=== PATIENT | male | born 1945 | race Caucasian/White ===

== ENCOUNTER → 2019-06-14 | Outpatient (CLI) | payer MEDICARE ==
--- NOTE | 2019-06-14 14:14 | MR ---
EXAMINATION TYPE: MR knee RT wo con DATE OF EXAM: 06/14/2019 COMPARISON: Plain film 05/02/2019 HISTORY: Right knee pain TECHNIQUE: Multiplanar, multisequence imaging of the right knee is performed without IV contrast. FINDINGS: MEDIAL MENISCUS: Posterior horn of the medial meniscus is small and irregular, there is abnormal at 8 and 6 signal present in the body and coronal image 18 shows a truncated appearance LATERAL MENISCUS: Meniscus shows in the posterior horn abnormal increased signal is extensive articul ar surface. T2 intense focus along the anterior horn may represent a meniscal cyst coronal image 12 m easuring 9 mm CRUCIATE LIGAMENTS: The anterior and posterior cruciate ligaments are intact and unremarkable. COLLATERAL LIGAMENTS: The medial collateral ligament and lateral collateral ligament complex are inta ct and unremarkable. EXTENSOR MECHANISM: Visualized quadriceps and patellar tendons are intact. EFFUSION: Prepatellar joint effusion is present. POPLITEAL CYST: T1 intermediate, T2 intense focus measures 2.6 x 1 1.8 x 4.5 cm and shows some inter nal septations, mild heterogeneity of signal. TRICOMPARTMENT SPACES: Joint space loss greater in the lateral compartment than the medial compartmen t CARTILAGE: Grade 3 to grade IV chondromalacia in the lateral compartment, grade III chondromalacia in the medial compartment, grade II chondromalacia posterior patella BONE MARROW SIGNAL: Reactive marrow signal change present in the subchondral location compartment OTHER: Subcutaneous edema is present anteriorly. IMPRESSION: Osteoarthritis. Tears of the menisci as described. Semimembranosus gastrocnemius cyst. Additional fin dings above.
== END | disposition home or self-care (01) ==
LOC: RADMRIMAIN 09:20
PROVIDERS: ATTEND Orthopaedic Surgery
DX: S83.241A Other tear of medial meniscus, current injury, right knee, initial encounter (principal); S83.281A Other tear of lateral meniscus, current injury, right knee, initial encounter; M17.11 Unilateral primary osteoarthritis, right knee; M22.41 Chondromalacia patellae, right knee

== ENCOUNTER 2019-07-15 08:09 | Day surgery (SDC) | payer MEDICARE ==
[2019-07-12 13:26] VITALS: BMI 36.4
--- NOTE | 2019-07-14 09:50 | HP ---
HISTORY AND PHYSICAL CHIEF COMPLAINT: Right knee pain. HISTORY OF PRESENT ILLNESS: The patient is a 74-year-old retired gentleman who presents with progressive right knee pain for the past several months. He notes posterior and lateral pain and giving way. He has tried medications and an injection with only partial temporary relief. He does use a walker. PAST MEDICAL HISTORY: Significant for arthritis, reflux disease, hypertension, and Parkinson's. PAST SURGICAL HISTORY: Significant for left total knee arthroplasty, previous shoulder surgery and appendectomy. CURRENT MEDICATIONS: 1. Lisinopril. 2. Doxazosin. 3. Lasix. 4. Gabapentin. 5. Mobic. 6. Sinemet. 7. Tylenol. ALLERGIES: He denies drug allergies. FAMILY HISTORY: Significant for cancer and Parkinson's. SOCIAL HISTORY: Significant for previous tobacco use. REVIEW OF SYSTEMS: Sixteen-point review of systems otherwise reviewed and is noncontributory. PHYSICAL EXAMINATION: On examination, the patient is approximately 5 feet 5 inches, 219 pounds of endomorphic habitus. HEENT exam is nonfocal. Neck is supple. He has painless passive motion of the right hip. Straight leg raise is negative. Active motion right knee -8 to 120 degrees of flexion. He has a trace effusion. He is tender about the lateral joint line. Collaterals are stable, Eliseo is negative, Yeison's elicits lateral pain. He has genu valgum alignment. His distal neurovascular exam appears intact in the right lower extremity. MRI report 06/14/2019 of the right knee shows a posterior medial and lateral meniscal tear. Lateral compartment degenerative changes are noted. IMPRESSION: 1. Right knee internal derangement with symptomatic medial and lateral meniscal tears. 2. Right knee moderate lateral compartment osteoarthrosis. 3. Parkinson's. RECOMMENDATIONS: I talked to the patient at length regarding his condition along with treatment options. At this point, he is quite symptomatic, having pain and mechanical symptoms despite conservative measures. After thorough discussion, he opts to proceed with surgery. We will plan to proceed with arthroscopic evaluation with possible partial medial and lateral meniscectomy. We will likely perform that as an outpatient procedure. Risks and benefits were discussed at length in layman's terms. The patient underwent preoperative medical evaluation by Dr. Christiano Hand. MMMARLA / LESLIE: [id number] /
[~2019-07-15 08:09] MED LIST: DEXAMETHASONE SOD PHOSPHATE 10 MG/ML 1 ML VIAL IV ONE; HYDROmorphone 0.5 MG/0.5 ML SYRINGE IVP PRN; ONDANSETRON 4 MG/2 ML VIAL IVP ONE
[2019-07-15 08:47] LABS: Basophils # (A) 0.1 k/uL (0-0.2); Basophils % (A) 1 %; Eosinophils # (A) 0.3 k/uL (0-0.7); Eosinophils % (A) 4 %; HGB 11.3 gm/dL (13.0-17.5); Lymphocytes # (A) 1.3 k/uL (1.0-4.8); Lymphocytes % (A) 18 %; MCH 27.1 pg (25.0-35.0); MCHC 32.4 g/dL (31.0-37.0); MCV 83.5 fL (80.0-100.0); Mean Platelet Volume 8.3; Monocytes # (A) 0.6 k/uL (0-1.0); Monocytes % (A) 8 %; Neutrophils # (A) 4.5 k/uL (1.3-7.7); Neutrophils % (A) 66 %; Platelet Count 278 k/uL (150-450); RBC 4.19 m/uL (4.30-5.90); RDW 14.9 % (11.5-15.5); WBC 6.9 k/uL (3.8-10.6)
[2019-07-15] MEDS: LACTATED RINGERS 1,000 ML IV SCH (08:55)
[2019-07-15] MEDS ORDERED: LIDOCAINE 1% 20 ML VIAL (10MG/ML) FOR IV START INTRADERMA ONE (08:56)
[2019-07-15 09:02] LABS: Calcium 9.2 mg/dL (8.4-10.2); Potassium 3.3 mmol/L (3.5-5.1)
[2019-07-15] MEDS ORDERED: MIDAZOLAM 2 MG/2 ML VIAL ONE (10:30)
[2019-07-15] MEDS ORDERED: SUCCINYLCHOLINE CHLORIDE 100 MG/5 ML SYR IV ONE (10:30)
[2019-07-15] MEDS ORDERED: fentaNYL (PF) 50 MCG/ML 2 ML AMP ONE (10:30)
[2019-07-15] MEDS ORDERED: LIDOCAINE 1% INJ 10MG/ML (20 ML MDV) ONE (10:30)
[2019-07-15] MEDS ORDERED: PROPOFOL 10 MG/ML 20 ML VIAL IV ONE (10:30)
[2019-07-15] MEDS ORDERED: LACTATED RINGERS 1,000 ML IV ONE (11:03)
--- NOTE | 2019-07-15 11:22 | P.OP ---
Date of Procedure: 07/15/19 Preoperative Diagnosis: Right knee internal derangement Postoperative Diagnosis: Right knee posterior medial meniscal tear/posterior lateral meniscal tear/grade 3 chondral injury posterior medial femoral condyle Procedure(s) Performed: Right knee arthroscopic partial medial meniscectomy/partial lateral meniscectomy/medial femoral chondrectomy/microfracture medial femoral condyle Anesthesia: SHAW Surgeon: Josh Richmond Estimated Blood Loss (ml): 10 Pathology: none sent Condition: stable Disposition: PACU Indications for Procedure: The patient's a 74-year-old male who presents with progressive right knee pain and mechanical symptoms despite conservative measures. A discussion the risks and benefits of operative intervention versus continued conservative measures was made with the patient. He opted to proceed with surgery. Operative risks to include infection, neurovascular injury, development of blood clots, possible incomplete resolution of symptoms, possible worsening symptoms and need for subsequent procedures was discussed. Informed consent was obtained. Operative Findings: As below Description of Procedure: The patient was brought to the operating room, and after induction of general anesthesia examined the right knee. Collaterals were stable, Eliseo was negative, and posterior drawer was negative. The right lower extremity was prepped and draped in a normal fashion. A superior lateral portal was made through a 3 mm skin incision superior and lateral to the patella. This was used for outflow. A lateral portal was made through a 5 mm vertical skin incision lateral to the patella tendon above the joint line. Diagnostic arthroscopy was performed. On inspection of the medial compartment, a complex tear involving the posterior horn of the medial meniscus in the white-white junction was noted. This was debrided back to stable base with straight baskets and a motorized shaver. A corresponding grade 3 chondral injury was noted involving the central posterior portion of the medial femoral condyle. There was a loose chondral fragment debrided back to stable base with a motorized shaver. Microfracture was performed with a chondral breeching the subchondral surface down to the bone marrow elements. On inspection of the notch, the anterior cruciate ligament appeared to be intact. On inspection of the lateral compartment, complex tear involving the middle to posterior one third of the lateral meniscus was noted. This was debrided back to stable base with straight baskets and a motorized shaver. Grade 3/4 chondral changes were noted involving the posterior aspect of the lateral femoral condyle On inspection of the patellofemoral articulation, there was grade 2 chondral changes diffusely. The gutters were clear debris. The knee was then thoroughly irrigated. The portals were closed with Steri- Strips. A sterile dressing was applied in addition to a compression stocking. The patient was awoken from general anesthesia and transferred to recovery room in good condition. Blood loss was estimated at 10 mL. No complications were incurred.
[2019-07-15] MEDS ORDERED: HYDROcodone/APAP 5-325MG 1 EACH TAB PO ONE (12:16)
[2019-07-15] MEDS ORDERED: NALOXONE 0.4 MG/ML 1 ML VIAL IV PRN (16:41)
[2019-07-15] MEDS ORDERED: MORPHINE SULFATE 2 MG/ML SYRINGE IV PRN (16:41)
[2019-07-15] MEDS ORDERED: Potassium Replacement Protocol 1 EACH MISC MISCELLANE PRN (16:59)
--- NOTE | 2019-07-15 17:05 | P.HPIM ---
History of Present Illness H&P Date: 07/15/19 Chief Complaint: Right knee pain 74 show male with PMH of Parkinson's disorder, hypertension, GERD, arthritis presents to [facility] for elective surgery. He has had progressive right knee pain over the past several months after suffering a fall in the bathroom a couple of months ago. MRI that was done on 06/14/2019 of the right knee showed a posterior medial and lateral meniscal tear. Patient underwent right knee arthroscopic partial medial meniscectomy, partial lateral meniscectomy, medial femoral chondrectomy and microfracture of the medial femor al condyle. After the surgery, patient was unable to get up and ambulate with the help of assistance thus admitted for further workup and treatment. Patient had no immediate postoperative complications. Patient was seen and examined. Patient reports a mild aching in his right knee at this time 5-6 out of 10 in severity. Patient denies any headache, lower extremity edema, nausea or vomiting, fever or chills, cough, chest pain, shortness of breath, palpitations, changes in urination or bowel habits. No changes in appetite or weight. Patient states that he lives with his and she takes care of him "the best that she can". Apparently, patient was too drowsy and had difficulty moving his right and left lower extremity. Is unable to get up safely and only has his for help at home. His vital signs are currently stable. He is saturating low 90s on 2 L nasal cannula. Review of Systems Pertinent positives and negatives as discussed in HPI, a complete review of systems was performed and all other systems are negative. Past Medical History Past Medical History: Heart Failure, COPD, GERD/Reflux, Hypertension, Neurologic Disorder, Prostate Disorder Additional Past Medical History / Comment(s): PARKINSON'S DISEASE, BACK PAIN, PUD, rectal bleed with colonoscopy-thought to be from hemorrhoids, benign thyroid nodules, gall bladder sludge, hx brain bleed History of Any Multi-Drug Resistant Organisms: None Reported Past Surgical History: Appendectomy, Joint Replacement, Orthopedic Surgery Additional Past Surgical History / Comment(s): 10/09/15 total L knee arthroplasty. Other SX: NEUROMA -RIGHT WRIST , LEFT SHOULDER rotator cuff repair, colonoscopy with polypectomy-benign Past Anesthesia/Blood Transfusion Reactions: No Reported Reaction Additional Past Anesthesia/Blood Transfusion Reaction / Comment(s): Pt has never received blood. Smoking Status: Former smoker - Past Family History Brother(s) Family Medical History: Cancer Father History Unknown: Yes Additional Family Medical History / Comment(s): Father at age 97yrs.complications from smoking Mother Additional Family Medical History / Comment(s): Mother at age 84yrs. She had a problem with pain medication after a accident. Medications and Allergies Home Medications Medication Instructions Recorded Confirmed Type Carbidopa-Levodopa 25-100 mg 1 tab PO TID 09/25/15 07/15/19 History [Sinemet 25-100 mg] Doxazosin Mesylate 8 mg PO HS 09/25/15 07/15/19 History Gabapentin [Neurontin] 300 mg PO HS 09/25/15 07/15/19 History Acetaminophen [Tylenol Arthritis] 2 - 4 tab PO DAILY 07/12/19 07/15/19 History Albuterol Inhaler [Ventolin Hfa 2 puff INHALATION DAILY PRN 07/12/19 07/15/19 History Inhaler] DULoxetine HCL [Cymbalta] 20 mg PO BID 07/12/19 07/15/19 History Entacapone [Comtan] 200 mg PO DAILY 07/12/19 07/15/19 History Furosemide [Lasix] 40 mg PO DAILY 07/12/19 07/15/19 History Meloxicam 15 mg PO HS 07/12/19 07/15/19 History Metolazone [Zaroxolyn] 2.5 mg PO Q48H 07/12/19 07/15/19 History Omeprazole 20 mg PO DAILY 07/12/19 07/15/19 History HYDROcodone/APAP 5-325MG [[place] 1 tab PO Q6HR PRN 7 Days #21 tab 07/15/19 Rx 5-325] Allergies Allergy/AdvReac Type Severity Reaction Status Date / Time No Known Allergies Allergy Verified 07/15/19 08:50 Physical Exam Vitals: Vital Signs Temp Pulse Resp BP BP Pulse Ox 07/15/19 16:30 98.2 F 87 15 130/85 91 L 07/15/19 16:27 94 L 07/15/19 15:41 86 20 123/80 96 07/15/19 15:05 87 20 134/82 97 07/15/19 14:21 84 20 125/84 94 L 07/15/19 13:30 84 20 114/73 96 07/15/19 13:04 86 20 106/69 97 07/15/19 12:30 88 20 108/70 93 L 07/15/19 12:15 76 18 132/87 94 L 07/15/19 12:13 81 18 124/80 90 L 07/15/19 11:54 74 18 137/89 91 L 07/15/19 11:47 73 16 129/79 92 L 07/15/19 11:30 72 16 133/81 93 L 07/15/19 11:18 97.1 F L 79 16 107/73 100 07/15/19 08:53 97.4 F L 89 18 121/79 92 L Intake and Output 07/15/19 07/15/19 07/15/19 06:59 14:59 22:59 Intake Total 1900 Output Total 355 Balance 1545 Intake: IV 1900 Output: Urine 350 Estimated Blood Loss 5 Other: Weight 100.244 kg General: [non toxic], [no distress], [appears at stated age] Derm: [warm], [dry] Head: [atraumatic], [normocephalic], [symmetric] Eyes: [EOMI], [no lid lag], [anicteric sclera] Mouth: [no lip lesion], [mucus membranes moist] Cardiovascular: [S1S2 reg], [no murmur], [positive DP pulse bilateral] Lungs: [Decreased breath sounds bilateral], [no rhonchi, no rales] , [no accessory muscle use] Abdominal: [soft], [ nontender to palpation], [no guarding], [no appreciable organomegaly] Ext: [no gross muscle atrophy], [no edema], [right knee wrapped dressing clean dry and intact with limited range of motion], [fine tremors of the fingers] Neuro: [ CN II-XI grossly intact], [no focal neuro deficits] Psych: [Alert], [oriented], [appropriate affect] Results CBC & Chem 7: 07/15/19 08:40 07/15/19 08:40 Labs: Abnormal Lab Results - Last 24 Hours (Table) 07/15/19 07/15/19 Range/Units 08:40 08:40 RBC 4.19 L (4.30-5.90) m/uL Hgb 11.3 L (13.0-17.5) gm/dL Hct 35.0 L (39.0-53.0) % Potassium 3.3 L (3.5-5.1) mmol/L Carbon Dioxide 33 H (22-30) mmol/L BUN 30 H (9-20) mg/dL Creatinine 1.37 H (0.66-1.25) mg/dL Thrombosis Risk Factor Assmnt - Choose All That Apply Each Factor Represents 1 point: Abnormal pulmonary function (COPD), Minor surgery planned, Obesity (BMI >25) Each Risk Factor Represents 2 Points: Arthroscopic surgery Each Risk Factor Represents 3 Points: Age 75 years or older Thrombosis Risk Factor Assessment Total Risk Factor Score: 8 Thrombosis Risk Factor Assessment Level: High Risk Assessment and Plan Assessment: Unstable gait likely secondary to recent right knee surgery and history of Parkinson's Parkinson's disorder Anemia Hypokalemia Acute kidney injury BPH Patient reports a vague 5-6 out of 10 severity pain in his right knee post surgery. Per RN reports, patient was drowsy and unable to ambulate postoperatively. This could be related to anesthesia. Plans: Fall precautions. Will follow PT and OT recommendations tomorrow. Plans: Continue carbidopa levodopa. Continue entacapone. Fall precautions. Hemoglobin 11.3. Unknown baseline. Likely acute blood loss from surgery. Plans: Daily CBC. Transfuse if hemoglobin less than 7. Potassium 3.3. Plans: Replace via protocol. BUN 30, creatinine 1.37. Likely due to dehydration. Unknown if patient has CKD. Plans: Start lactated Ringer's at 80 mL per hour. Daily BMP. Consider renal ultrasound and urine electrolytes if not improved tomorrow. Plans: Start Doxazosin. DVT prophylaxis: [SCD boots] Discussed with: [Patient] Anticipated discharge: [1-2 days] Anticipated discharge place: [Home] A total of [45] minutes was spent on the care of this complex patient more than 50% of the time was spent in counseling and care coordination. Patient names his Rosa Maria decision maker in the case that he can make decisions for himself. Patient reiterates wanting to remain full code at this time.
--- NOTE | 2019-07-15 17:30 | P.CNOR ---
History of Present Illness - [facility] Consult date: 07/15/19 Consult reason: other (Weakness) History of present illness: The patient's a 74-year-old male who underwent right knee arthroscopy today and after surgery, had a hard time ambulating. Past Medical History Past Medical History: Heart Failure, COPD, GERD/Reflux, Hypertension, Neurologic Disorder, Prostate Disorder Additional Past Medical History / Comment(s): PARKINSON'S DISEASE, BACK PAIN, PUD, rectal bleed with colonoscopy-thought to be from hemorrhoids, benign thyroid nodules, gall bladder sludge, hx brain bleed History of Any Multi-Drug Resistant Organisms: None Reported Past Surgical History: Appendectomy, Joint Replacement, Orthopedic Surgery Additional Past Surgical History / Comment(s): 10/09/15 total L knee arthroplasty. Other SX: NEUROMA -RIGHT WRIST , LEFT SHOULDER rotator cuff repair, colonoscopy with polypectomy-benign Past Anesthesia/Blood Transfusion Reactions: No Reported Reaction Additional Past Anesthesia/Blood Transfusion Reaction / Comm: Pt has never received blood. Smoking Status: Former smoker - Past Family History Brother(s) Family Medical History: Cancer Father History Unknown: Yes Additional Family Medical History / Comment(s): Father at age 97yrs.complications from smoking Mother Additional Family Medical History / Comment(s): Mother at age 84yrs. She had a problem with pain medication after a accident. Medications and Allergies Home Medications Medication Instructions Recorded Confirmed Type Carbidopa-Levodopa 25-100 mg 1 tab PO TID 09/25/15 07/15/19 History [Sinemet 25-100 mg] Doxazosin Mesylate 8 mg PO HS 09/25/15 07/15/19 History Gabapentin [Neurontin] 300 mg PO HS 09/25/15 07/15/19 History Acetaminophen [Tylenol Arthritis] 2 - 4 tab PO DAILY 07/12/19 07/15/19 History Albuterol Inhaler [Ventolin Hfa 2 puff INHALATION DAILY PRN 07/12/19 07/15/19 History Inhaler] DULoxetine HCL [Cymbalta] 20 mg PO BID 07/12/19 07/15/19 History Entacapone [Comtan] 200 mg PO DAILY 07/12/19 07/15/19 History Furosemide [Lasix] 40 mg PO DAILY 07/12/19 07/15/19 History Meloxicam 15 mg PO HS 07/12/19 07/15/19 History Metolazone [Zaroxolyn] 2.5 mg PO Q48H 07/12/19 07/15/19 History Omeprazole 20 mg PO DAILY 07/12/19 07/15/19 History HYDROcodone/APAP 5-325MG [[place] 1 tab PO Q6HR PRN 7 Days #21 tab 07/15/19 Rx 5-325] Allergies Allergy/AdvReac Type Severity Reaction Status Date / Time No Known Allergies Allergy Verified 07/15/19 08:50 Physical Examination - Knee right Appearance: effusion (Mild) Previous incision location: Portal sites clean and dry Tenderness with palpation: none Gait: other (Wide-based and unsteady) ROM: extension: -10 degrees ROM: flexion: 110 degrees Results - Labs Labs: Abnormal Lab Results - Last 24 Hours (Table) 07/15/19 07/15/19 Range/Units 08:40 08:40 RBC 4.19 L (4.30-5.90) m/uL Hgb 11.3 L (13.0-17.5) gm/dL Hct 35.0 L (39.0-53.0) % Potassium 3.3 L (3.5-5.1) mmol/L Carbon Dioxide 33 H (22-30) mmol/L BUN 30 H (9-20) mg/dL Creatinine 1.37 H (0.66-1.25) mg/dL H & H 07/15/19 Range/Units 08:40 Hgb 11.3 L (13.0-17.5) gm/dL Hct 35.0 L (39.0-53.0) % Result Diagrams: 07/15/19 08:40 07/15/19 08:40 Assessment and Plan Assessment: Status post right knee arthroscopy Parkinson's Gait abnormality Plan: At this point he benefit from OT/PT evaluation and treatment. He may require home therapy once discharged. He can weight-bear as tolerated on the right leg with a walker and assistance. Follow-up with Dr. Richmond in 2 weeks. Keep incisions clean and dry. Time with Patient: Less than 30
[2019-07-15] MEDS: GABAPENTIN 300 MG CAP PO SCH (20:14)
[2019-07-15] MEDS: DOXAZOSIN 4 MG TAB PO SCH (20:14)
[2019-07-15] MEDS: DULoxetine HCL 20 MG CAPSULE.DR PO SCH (20:14)
[2019-07-15] MEDS: HYDROcodone/APAP 5-325MG 1 EACH TAB PO PRN (20:14)
[2019-07-15] MEDS: CARBIDOPA-LEVODOPA 25-100 MG 1 EACH TAB PO SCH (21:06)
[2019-07-16 07:47] LABS: Basophils # (A) 0.1 k/uL (0-0.2); Basophils % (A) 1 %; Eosinophils # (A) 0.1 k/uL (0-0.7); Eosinophils % (A) 1 %; HGB 10.1 gm/dL (13.0-17.5); Lymphocytes # (A) 1.1 k/uL (1.0-4.8); Lymphocytes % (A) 15 %; MCH 27.8 pg (25.0-35.0); MCHC 32.6 g/dL (31.0-37.0); MCV 85.3 fL (80.0-100.0); Mean Platelet Volume 8.2; Monocytes # (A) 0.6 k/uL (0-1.0); Monocytes % (A) 8 %; Neutrophils # (A) 5.6 k/uL (1.3-7.7); Neutrophils % (A) 74 %; Platelet Count 259 k/uL (150-450); RBC 3.64 m/uL (4.30-5.90); RDW 14.8 % (11.5-15.5); WBC 7.6 k/uL (3.8-10.6)
[2019-07-16 08:03] LABS: Albumin 3.5 g/dL (3.5-5.0); Calcium 8.7 mg/dL (8.4-10.2); Potassium 3.3 mmol/L (3.5-5.1); Total Bilirubin 0.8 mg/dL (0.2-1.3); Total Protein 6.5 g/dL (6.3-8.2)
[2019-07-16] MEDS: DULoxetine HCL 20 MG CAPSULE.DR PO SCH ×2 (08:53→20:44)
[2019-07-16] MEDS: POTASSIUM CHLORIDE ER 20 MEQ TAB.ER PO SCH ×4 (08:53→20:44)
[2019-07-16] MEDS: PANTOPRAZOLE 40 MG TABLET PO SCH (08:53)
[2019-07-16] MEDS: CARBIDOPA-LEVODOPA 25-100 MG 1 EACH TAB PO SCH ×3 (08:53→20:09)
[2019-07-16] MEDS: LACTATED RINGERS 1,000 ML IV SCH ×2 (08:58→19:21)
[2019-07-16] MEDS: ENTACAPONE 200 MG TAB PO SCH (10:19)
[2019-07-16] MEDS ORDERED: POTASSIUM CHLORIDE ER 20 MEQ TAB.ER PO STA (11:52)
--- NOTE | 2019-07-16 11:54 | P.PN ---
Subjective Progress Note Date: 07/16/19 Principal diagnosis: Unstable gait Patient was seen and examined. No acute events overnight. Patient reports improved pain in his right knee. He denies any chest pain, shortness of breath or palpitations. No nausea or vomiting. No fever or chills. States that he would rather go home instead a rehab, had a bad experience at [facility]. states that she can't take care of him and would rather him go to rehab. Objective - Vital Signs Vital signs: Vital Signs Temp 97.4 F L 07/16/19 07:00 Pulse 86 07/16/19 07:00 Resp 16 07/16/19 08:00 BP 122/73 07/16/19 07:00 Pulse Ox 92 L 07/16/19 07:00 Intake & Output 07/15/19 07/16/19 07/16/19 18:59 06:59 18:59 Intake Total 1900 960 Output Total 355 200 Balance 1545 960 -200 Weight 100.244 kg Intake: IV 1900 Intake, IV Titration 960 Amount Lactated Ringers 1,000 ml 960 @ 80 mls/hr IV .[id number] [facility] Rx#:[id number] Output: Urine 350 200 Estimated Blood Loss 5 Other: Voiding Method Urinal Diaper - Exam General: [non toxic], [no distress], [appears at stated age] Derm: [warm], [dry] Head: [atraumatic], [normocephalic], [symmetric] Eyes: [EOMI], [no lid lag], [anicteric sclera] Mouth: [no lip lesion], [mucus membranes moist] Cardiovascular: [S1S2 reg], [no murmur], [positive DP pulse bilateral] Lungs: [Clear to auscultation bilateral], [no rhonchi, no rales] , [no accessory muscle use] Abdominal: [soft], [ nontender to palpation], [no guarding], [no appreciable organomegaly] Ext: [no gross muscle atrophy], [no edema], [right knee wrapped dressing clean dry and intact with limited range of motion], [fine tremors of the fingers] Neuro: [no focal neuro deficits] Psych: [Alert], [oriented], [appropriate affect] - Labs CBC & Chem 7: 07/16/19 07:28 07/16/19 07:28 Labs: Abnormal Lab Results - Last 24 Hours (Table) 07/16/19 07/16/19 Range/Units 07:28 07:28 RBC 3.64 L (4.30-5.90) m/uL Hgb 10.1 L (13.0-17.5) gm/dL Hct 31.0 L (39.0-53.0) % Potassium 3.3 L (3.5-5.1) mmol/L BUN 23 H (9-20) mg/dL Glucose 102 H (74-99) mg/dL ALT 13 L (21-72) U/L Assessment and Plan Assessment: Unstable gait likely secondary to recent right knee surgery and history of Parkinson's Parkinson's disorder Anemia Hypokalemia Acute kidney injury BPH Plans: Fall precautions. Will wait on PT and OT recommendations. Plans: Continue carbidopa levodopa. Continue entacapone. Fall precautions. Hemoglobin 11.3-10.1. Unknown baseline. Likely acute blood loss from surgery. Plans: Daily CBC. Transfuse if hemoglobin less than 7. Potassium 3.3-3.3. Plans: Replace via protocol. BUN 30-23, creatinine 1.37-within normal limits. Likely due to dehydration. Unknown if patient has CKD. Plans: Continue lactated Ringer's at 80 mL per hour. Daily BMP. Plans: Start Doxazosin. [Will wait on PT evaluation to determine home versus [facility]. Possible DC today.]
[2019-07-16] MEDS: HEPARIN SODIUM,PORCINE 5,000 UNIT/ML 1 ML VIAL SQ SCH ×2 (16:15→22:45)
[2019-07-16] MEDS: ACETAMINOPHEN TAB 325 MG TAB PO PRN ×2 (16:15→22:45)
[2019-07-16] MEDS: GABAPENTIN 300 MG CAP PO SCH (20:09)
[2019-07-16] MEDS: DOXAZOSIN 4 MG TAB PO SCH (20:09)
[2019-07-17] MEDS: MELATONIN 3 MG TABLET PO PRN ×2 (00:36→21:07)
[2019-07-17] MEDS: DULoxetine HCL 20 MG CAPSULE.DR PO SCH ×2 (08:23→20:01)
[2019-07-17] MEDS: HEPARIN SODIUM,PORCINE 5,000 UNIT/ML 1 ML VIAL SQ SCH ×3 (08:23→23:12)
[2019-07-17] MEDS: PANTOPRAZOLE 40 MG TABLET PO SCH (08:23)
[2019-07-17] MEDS: CARBIDOPA-LEVODOPA 25-100 MG 1 EACH TAB PO SCH ×3 (08:23→20:01)
[2019-07-17] MEDS: ENTACAPONE 200 MG TAB PO SCH (08:23)
--- NOTE | 2019-07-17 10:15 | P.PN ---
Subjective Progress Note Date: 07/17/19 Principal diagnosis: Patient was seen and examined. No acute events overnight. Patient reports constipation, would like stool softener. He denies any chest pain, shortness of breath or palpitations. No nausea or vomiting. No fever or chills. Able to work with physical therapy, recommended rehab. He is now agreeable for rehab. Objective - Vital Signs Vital signs: Vital Signs Temp 97.9 F 07/17/19 07:00 Pulse 72 07/17/19 07:00 Resp 14 07/17/19 07:00 BP 133/79 07/17/19 07:00 Pulse Ox 95 07/17/19 07:00 Intake & Output 07/16/19 07/17/19 07/17/19 18:59 06:59 18:59 Intake Total 600 Output Total 200 200 Balance -200 600 -200 Intake: Oral 600 Output: Urine 200 200 Other: Voiding Method Urinal Diaper # Voids 2 3 - Exam General: [non toxic], [no distress], [appears at stated age] Derm: [warm], [dry] Head: [atraumatic], [normocephalic], [symmetric] Eyes: [EOMI], [no lid lag], [anicteric sclera] Mouth: [no lip lesion], [mucus membranes moist] Cardiovascular: [S1S2 reg], [no murmur], [positive DP pulse bilateral] Lungs: [Clear to auscultation bilateral], [no rhonchi, no rales] , [no accessory muscle use] Abdominal: [soft], [ nontender to palpation], [no guarding], [no appreciable organomegaly] Ext: [no gross muscle atrophy], [no edema], [right knee wrapped dressing clean dry and intact with limited range of motion], [fine tremors of the fingers] Neuro: [no focal neuro deficits] Psych: [Alert], [oriented], [appropriate affect] - Labs CBC & Chem 7: 07/16/19 07:28 07/16/19 15:33 Labs: Abnormal Lab Results - Last 24 Hours (Table) 07/16/19 Range/Units 15:33 Potassium 3.4 L (3.5-5.1) mmol/L Assessment and Plan Assessment: Unstable gait likely secondary to recent right knee surgery and history of Parkinson's Constipation Parkinson's disorder Anemia Hypokalemia Acute kidney injury BPH Plans: Fall precautions. PT recommends rehab. Plans: MiraLAX today. Plans: Continue carbidopa levodopa. Continue entacapone. Fall precautions. Hemoglobin 11.3-10.1. Unknown baseline. Likely acute blood loss from surgery. Plans: Transfuse if hemoglobin less than 7. Potassium 3.3-3.3-3.4. Plans: Replace via protocol. BUN 30-23, creatinine 1.37-within normal limits. Likely due to dehydration. Unknown if patient has CKD. Plans: Continue lactated Ringer's at 80 mL per hour. Daily BMP. Plans: Start Doxazosin. [Needs [facility]. Follow social work tomorrow. DC tomorrow.]
[2019-07-17] MEDS: POTASSIUM CHLORIDE ER 20 MEQ TAB.ER PO SCH ×4 (11:03→21:07)
[2019-07-17] MEDS: LACTATED RINGERS 1,000 ML IV SCH ×2 (11:03→20:01)
[2019-07-17] MEDS: POLYETHYLENE GLYCOL 3350 17 GM POWD.PACK PO SCH (11:03)
[2019-07-17] MEDS: ACETAMINOPHEN TAB 325 MG TAB PO PRN (12:19)
[2019-07-17] MEDS: GABAPENTIN 300 MG CAP PO SCH (20:01)
[2019-07-17] MEDS: DOXAZOSIN 4 MG TAB PO SCH (20:01)
[2019-07-18] MEDS: ACETAMINOPHEN TAB 325 MG TAB PO PRN ×2 (01:02→10:57)
[2019-07-18] MEDS: HEPARIN SODIUM,PORCINE 5,000 UNIT/ML 1 ML VIAL SQ SCH ×3 (09:08→22:43)
[2019-07-18] MEDS: POLYETHYLENE GLYCOL 3350 17 GM POWD.PACK PO SCH (09:08)
[2019-07-18] MEDS: PANTOPRAZOLE 40 MG TABLET PO SCH (09:08)
[2019-07-18] MEDS: CARBIDOPA-LEVODOPA 25-100 MG 1 EACH TAB PO SCH ×3 (09:08→20:21)
[2019-07-18] MEDS: DULoxetine HCL 20 MG CAPSULE.DR PO SCH ×2 (09:08→20:21)
[2019-07-18] MEDS: ENTACAPONE 200 MG TAB PO SCH (09:08)
--- NOTE | 2019-07-18 09:25 | P.DS ---
Providers Date of admission: 07/15/2019 Expected date of discharge: 07/18/19 Attending physician: Leona Marley MD Consults: 07/15/19 15:14 Consult Physician Routine Consulting Provider: Josh Richmond Consult Reason/Comments: POST KNEE SURGERY Do you want consulting provider notified?: Yes, Notify in am Primary care physician: Christiano Juan [facility] Course: 74-year-old male with PMH of Parkinson's disorder, hypertension, GERD, arthritis presents to [facility] for elective surgery. He has had progressive right knee pain over the past several months after suffering a fall in the bathroom a couple of months ago. MRI that was done on 06/14/2019 of the right knee showed a posterior medial and lateral meniscal tear. Patient underwent right knee arthroscopic partial medial meniscectomy, partial lateral meniscectomy, medial femoral chondrectomy and microfracture of the medial femoral condyle. After the surgery, patient was unable to get up and ambulate with the help of assistance thus admitted for further workup and treatment. Patient had no immediate postoperative complications. Patient was seen and examined. Patient reports a mild aching in his right knee at this time 5-6 out of 10 in severity. Patient denies any headache, lower extremity edema, nausea or vomiting, fever or chills, cough, chest pain, shortness of breath, palpitations, changes in urination or bowel habits. No changes in appetite or weight. Patient states that he lives with his and she takes care of him "the best that she can". Apparently, patient was too drowsy and had difficulty moving his right and left lower extremity. Is unable to get up safely and only has his for help at home. His vital signs are currently stable. He is saturating low 90s on 2 L nasal cannula. Physical therapy evaluated the patient for his unstable gait. They recommended subacute rehab. Patient was placed on fall precautions. Patient complained of constipation through his hospitalization and he was given MiraLAX. Patient was noted to be anemic with initial hemoglobin of 11.3 which trended down to 10.1. This is thought to be secondary to acute blood loss from surgery. Patient was noted to be hypokalemic with a potassium of 3.3 which was replaced throughout hospitalization. His potassium was within normal limits on discharge. Patient was noted to have an elevated BUN and creatinine of 30 and 1.37 respectively. This is thought to be secondary to dehydration. He was given lactated Ringer's at 80 mL/h. His creatinine was within normal limits on d ischarge. Patient was seen and examined prior to discharge. No acute events overnight. He denies any chest pain, shortness of breath or palpitations. No nausea or vomiting. No fever or chills. Patient complains of right eye discomfort and discharge from this morning. Reports that he had a cataract surgery with lens implantation over a year ago. He denies any headache or dizziness. General: [non toxic], [no distress], [appears at stated age] Derm: [warm], [dry] Head: [atraumatic], [normocephalic], [symmetric] Eyes: [EOMI], [no lid lag], [anicteric sclera] Cardiovascular: [S1S2 reg], [no murmur], [positive DP pulse bilateral] Lungs: [Clear to auscultation bilateral], [no rhonchi, no rales] , [no accessory muscle use] Abdominal: [soft], [ nontender to palpation], [no guarding], [no appreciable organomegaly] Ext: [no gross muscle atrophy], [no edema], [right knee wrapped dressing clean dry and intact with limited range of motion], [fine tremors of the fingers] Neuro: [no focal neuro deficits] Psych: [Alert], [oriented], [appropriate affect] Unstable gait likely secondary to recent right knee surgery and history of Parkinson's Constipation Right eye discharge Parkinson's disorder Anemia Hypokalemia Acute kidney injury BPH Plans: Fall precautions. PT recommends rehab. Plans: MiraLAX as needed. Bowel movement yesterday. Complaints this morning of right eye discharge. No signs of infection. Plans: Artificial eyedrops. Will continue to monitor. Plans: Continue carbidopa levodopa. Continue entacapone. Fall precautions. Hemoglobin 11.3-10.1. Unknown baseline. Likely acute blood loss from surgery. Plans: Transfuse if hemoglobin less than 7. Potassium 3.3-3.3-3.4-3.6-4.4. Plans: Replace via protocol. BUN 30-23, creatinine 1.37-within normal limits. Likely due to dehydration. Unknown if patient has CKD. Plans: Encourage hydration by mouth. Daily BMP. Plans: Start Doxazosin. [Needs FATMATA. Follow social work tomorrow. DC today.] Procedures: Right knee arthroscopic partial medial meniscectomy, partial lateral meniscectomy, medial femoral condrectomy, microfracture of the medial femoral condyle Patient Condition at Discharge: Stable Plan - Discharge Summary Discharge Rx Participant: No New Discharge Prescriptions: New Melatonin 6 mg PO HS PRN tablet PRN Reason: Insomnia HYDROcodone/APAP 5-325MG [Weston 5-325] 1 each PO Q4HR PRN #18 tab PRN Reason: Moderate Pain Sennosides-Docusate Sodium [Senokot-S] 1 tab PO DAILY #30 tablet Artificial Tears-Hypromellose [Artificial Tear Drops] 2 drops RIGHT EYE QID PRN bottle PRN Reason: Dry Eye(S) Continue Doxazosin Mesylate 8 mg PO HS Carbidopa-Levodopa 25-100 mg [Sinemet 25-100 mg] 1 tab PO TID Gabapentin [Neurontin] 300 mg PO HS Albuterol Inhaler [Ventolin Hfa Inhaler] 2 puff INHALATION DAILY PRN PRN Reason: Dyspnea Omeprazole 20 mg PO DAILY Acetaminophen [Tylenol Arthritis] 2 - 4 tab PO DAILY Metolazone [Zaroxolyn] 2.5 mg PO Q48H Meloxicam 15 mg PO HS Furosemide [Lasix] 40 mg PO DAILY Entacapone [Comtan] 200 mg PO DAILY DULoxetine HCL [Cymbalta] 20 mg PO BID Discharge Medication List Carbidopa-Levodopa 25-100 mg [Sinemet 25-100 mg] 1 tab PO TID 09/25/15 [History] Doxazosin Mesylate 8 mg PO HS 09/25/15 [History] Gabapentin [Neurontin] 300 mg PO HS 09/25/15 [History] Acetaminophen [Tylenol Arthritis] 2 - 4 tab PO DAILY 07/12/19 [History] Albuterol Inhaler [Ventolin Hfa Inhaler] 2 puff INHALATION DAILY PRN 07/12/19 [History] DULoxetine HCL [Cymbalta] 20 mg PO BID 07/12/19 [History] Entacapone [Comtan] 200 mg PO DAILY 07/12/19 [History] Furosemide [Lasix] 40 mg PO DAILY 07/12/19 [History] Meloxicam 15 mg PO HS 07/12/19 [History] Metolazone [Zaroxolyn] 2.5 mg PO Q48H 07/12/19 [History] Omeprazole 20 mg PO DAILY 07/12/19 [History] Artificial Tears-Hypromellose [Artificial Tear Drops] 2 drops RIGHT EYE QID PRN bottle 07/18/19 [Rx] HYDROcodone/APAP 5-325MG [Weston 5-325] 1 each PO Q4HR PRN #18 tab 07/18/19 [Rx] Melatonin 6 mg PO HS PRN tablet 07/18/19 [Rx] Sennosides-Docusate Sodium [Senokot-S] 1 tab PO DAILY #30 tablet 07/18/19 [Rx] Follow up Appointment(s)/Referral(s): Drew Traylor PAC [PHYSICIAN LOGISTICS VICE PRESIDENT] - 07/29/19 3:10 pm Christiano aHnd MD [Primary Care Provider] - 1-2 Days Ambulatory/Diagnostic Orders: Basic Metabolic Panel [LAB.AMB] Time Frame: 3 Days, Location: None Selected Complete Blood Count w/diff [LAB.AMB] Time Frame: 3 Days, Location: None Selected Patient Instructions/Handouts: *Surgery [facility] - (Adv Ortho) Arthroscopic Knee Post-Op Instructions, *Surgery [facility] - (Anesthesia) Discharge Instructions Outpatient Surgery Activity/Diet/Wound Care/Special Instructions: Weightbearing as tolerated right leg with walker. Diet: Heart healthy Follow-up PCP within 3 days of discharge. Follow-up with orthopedic surgery with the appointment given to you. Take all medications as advised. Discharge Disposition: HOME SELF-CARE
[2019-07-18] MEDS ORDERED: CYCLOBENZAPRINE 5 MG TAB PO PRN (15:34)
[2019-07-18] MEDS: HYDROcodone/APAP 5-325MG 1 EACH TAB PO PRN (19:14)
[2019-07-18] MEDS: LACTATED RINGERS 1,000 ML IV SCH (20:16)
[2019-07-18] MEDS: DOXAZOSIN 4 MG TAB PO SCH (20:20)
[2019-07-18] MEDS: GABAPENTIN 300 MG CAP PO SCH (20:21)
[2019-07-18] MEDS: MELATONIN 3 MG TABLET PO PRN (22:20)
[2019-07-18] MEDS: ARTIFICIAL TEARS-HYPROMELLOSE DROPS 15 ML BTL RIGHT EYE PRN (22:42)
[2019-07-19 02:28] VITALS: BP 131/75; PULSE 72; RESP 16; TEMP 97.6
[2019-07-19] MEDS: HYDROcodone/APAP 5-325MG 1 EACH TAB PO PRN (06:00)
[2019-07-19] MEDS: HEPARIN SODIUM,PORCINE 5,000 UNIT/ML 1 ML VIAL SQ SCH (09:37)
[2019-07-19] MEDS: CARBIDOPA-LEVODOPA 25-100 MG 1 EACH TAB PO SCH (09:37)
[2019-07-19] MEDS: ENTACAPONE 200 MG TAB PO SCH (09:37)
[2019-07-19] MEDS: DULoxetine HCL 20 MG CAPSULE.DR PO SCH (09:37)
[2019-07-19] MEDS: PANTOPRAZOLE 40 MG TABLET PO SCH (09:37)
[2019-07-19] MEDS: POLYETHYLENE GLYCOL 3350 17 GM POWD.PACK PO SCH (09:38)
[2019-07-19] MEDS: LACTATED RINGERS 1,000 ML IV SCH (09:38)
[2019-07-19] MEDS: ARTIFICIAL TEARS-HYPROMELLOSE DROPS 15 ML BTL RIGHT EYE PRN (09:38)
[2019-07-19] MEDS ORDERED: KETOROLAC 30 MG/ML 1 ML VIAL IVP STA (10:12)
--- NOTE | 2019-07-19 10:14 | P.PN ---
Subjective Progress Note Date: 07/19/19 Principal diagnosis: Patient was seen and examined. No acute events overnight. Patient reports severe pain and has left great toe that started yesterday. Pain is 10 out of 10 in severity currently. States that he may have injured it during his fall. He denies any chest pain, shortness of breath or palpitations. No nausea or vomiting. No fever or chills. Objective - Vital Signs Vital signs: Vital Signs Temp 97.6 F 07/19/19 02:11 Pulse 72 07/19/19 02:11 Resp 16 07/19/19 02:11 BP 131/75 07/19/19 02:11 Pulse Ox 93 L 07/19/19 02:11 Intake & Output 07/18/19 07/19/19 07/19/19 18:59 06:59 18:59 Intake Total 600 Output Total 400 Balance -400 600 Intake: Oral 600 Output: Urine 400 Other: Voiding Method Urinal Diaper # Voids 2 - Exam General: [non toxic], [no distress], [appears at stated age] Derm: [warm], [dry] Head: [atraumatic], [normocephalic], [symmetric] Eyes: [EOMI], [no lid lag], [anicteric sclera] Mouth: [no lip lesion], [mucus membranes moist] Cardiovascular: [S1S2 reg], [no murmur], [positive DP pulse bilateral] Lungs: [Clear to auscultation bilateral], [no rhonchi, no rales] , [no accessory muscle use] Abdominal: [soft], [ nontender to palpation], [no guarding], [no appreciable organomegaly] Ext: [no gross muscle atrophy], [no edema], [right knee wrapped dressing clean dry and intact with limited range of motion], [fine tremors of the fingers], [erythema at the base of the left first great toe, tenderness to palpation with limited range of motion] Neuro: [no focal neuro deficits] Psych: [Alert], [oriented], [appropriate affect] - Labs CBC & Chem 7: 07/16/19 07:28 07/17/19 22:50 Assessment and Plan Assessment: Unstable gait likely secondary to recent right knee surgery and history of Parkinson's Left great toe pain likely gout rule out fracture due to fall Constipation Right eye discharge Parkinson's disorder Anemia Hypokalemia Acute kidney injury BPH Plans: Fall precautions. PT recommends rehab. Plans: Obtain x-ray. Obtain uric acid. One time dose of Toradol 30 mg IV. Plans: MiraLAX as needed. Bowel movement yesterday. Complaints yesterday morning of right eye discharge, improved today. No signs of infection. Plans: Artificial eyedrops. Will continue to monitor. Plans: Continue carbidopa levodopa. Continue entacapone. Fall precautions. Hemoglobin 11.3-10.1. Unknown baseline. Likely acute blood loss from surgery. Plans: Transfuse if hemoglobin less than 7. Potassium 3.3-3.3-3.4-3.6-4.4. Plans: Replace via protocol. BUN 30-23, creatinine 1.37-within normal limits. Likely due to dehydration. Unknown if patient has CKD. Plans: Encourage hydration by mouth. Daily BMP. Plans: Start Doxazosin. [Accepted to rehab. Workup for gout prior to DC today.]
--- NOTE | 2019-07-19 10:50 | XR ---
EXAMINATION TYPE: XR foot limited LT DATE OF EXAM: 07/19/2019 CLINICAL HISTORY: Foot in particular first toe pain after injury. TECHNIQUE: Frontal and lateral images of the left foot are obtained. COMPARISON: None FINDINGS: There is no acute fracture/dislocation evident in the left foot. Some flexion of the toes makes evaluation at this level slightly suboptimal. The joint spaces in the left foot appear within normal limits. Small inferior calcaneal spur. Mild diffuse subcutaneous edema. IMPRESSION: There is no acute fracture or dislocation in the left foot.
[2019-07-20] MEDS ORDERED: predniSONE 50 MG TAB PO SCH (09:00)
== END 2019-07-19 14:49 | disposition home or self-care (01) ==
LOC: OR 08:09 → 4SSUR 13:00 → OR 07-19 14:49
PROVIDERS: ATTEND Family Medicine
DX: S83.241A Other tear of medial meniscus, current injury, right knee, initial encounter (principal); S83.281A Other tear of lateral meniscus, current injury, right knee, initial encounter; S83.31XA Tear of articular cartilage of right knee, current, initial encounter; X58.XXXA Exposure to other specified factors, initial encounter; I25.10 Atherosclerotic heart disease of native coronary artery without angina pectoris; I25.2 Old myocardial infarction; I11.0 Hypertensive heart disease with heart failure; I50.9 Heart failure, unspecified; I48.0 Paroxysmal atrial fibrillation; D64.9 Anemia, unspecified; K21.9 Gastro-esophageal reflux disease without esophagitis; J44.9 Chronic obstructive pulmonary disease, unspecified; Z87.11 Personal history of peptic ulcer disease; Z86.73 Personal history of transient ischemic attack (TIA), and cerebral infarction without residual deficits; Z96.652 Presence of left artificial knee joint; M10.9 Gout, unspecified; E87.6 Hypokalemia; G20 Parkinson's disease; I87.2 Venous insufficiency (chronic) (peripheral); N40.0 Benign prostatic hyperplasia without lower urinary tract symptoms; E78.5 Hyperlipidemia, unspecified; K57.90 Diverticulosis of intestine, part unspecified, without perforation or abscess without bleeding; M17.12 Unilateral primary osteoarthritis, left knee; Z86.711 Personal history of pulmonary embolism; Z98.52 Vasectomy status; Z82.49 Family history of ischemic heart disease and other diseases of the circulatory system; Z82.3 Family history of stroke; Z80.42 Family history of malignant neoplasm of prostate; Z83.3 Family history of diabetes mellitus; Z84.89 Family history of other specified conditions; Z87.891 Personal history of nicotine dependence; Z79.1 Long term (current) use of non-steroidal anti-inflammatories (NSAID); Z79.899 Other long term (current) drug therapy; Z79.891 Long term (current) use of opiate analgesic
CPT/HCPCS: 94760; 80053; 80048; 84132; 84550; 85025 ×2; 73620; 29880; 29879; J2250; J1644 ×4; J1100; J0690; J2405; J2001; J3010; J1885; J0330; J2704